=== PATIENT | male | born 1985 | race American Indian/Alaskan Native ===

== ENCOUNTER 2016-08-11 19:50 | Inpatient (IN) | payer OTHER ==
[2016-08-11 21:30] LABS: RBC URINE 1 /hpf (0-3); URINE BACTERIA RARE (<OCC); URINE BILIRUBIN NEGATIVE (NEGATIVE); URINE COLOR Yellow (YELLOW); URINE GLUCOSE (UA) NORMAL (Normal); URINE KETONE 2+ mg/dL (NEGATIVE); URINE LEUKOCYTE ESTERASE NEG Leu/uL (Negative); URINE PROTEIN 1+ mg/dL (NEGATIVE); URINE UROBILINOGEN NORMAL mg/dL (0.2-1.0); WBC URINE 1 /hpf (0-5)
[2016-08-11 21:33] LABS: BASO # 0.1 K/uL (0.0-0.2); BASO % 0.6 % (0.0-2.0); EOS % 0.1 % (0.0-4.0); HEMATOCRIT 41.3 % (35.0-51.0); LYMPH # 2.2 K/uL (1.0-4.3); MEAN CELL VOLUME 89.2 fL (80.0-94.0); MEAN CORPUSCULAR HEMOGLOBIN 29.5 pg (27.0-31.0); MEAN PLATELET VOLUME 9.4 fL (7.2-11.7); MONO # 0.6 K/uL (0.0-0.8); MONO % 4.8 % (0.0-10.0); NRBC % 0.1 % (0.0-2.0); RED CELL DISTRIBUTION WIDTH 13.4 % (11.5-14.5); WHITE BLOOD COUNT 13.5 K/uL (4.8-10.8)
[2016-08-11 21:36] LABS: CHLORIDE 100 mmol/L (98-107)
[2016-08-11 21:37] LABS: POTASSIUM 4.4 mmol/L (3.6-5.2); SODIUM 142 mmol/L (132-148)
[2016-08-11 21:39] LABS: ALB/GLOB RATIO 1.3 (1.0-2.1); ALKALINE PHOSPHATASE 87 U/L (38-126); ALT/SGPT 39 U/L (21-72); AST/SGOT 46 U/L (17-59); BILIRUBIN,TOTAL 0.5 mg/dL (0.2-1.3); BLOOD UREA NITROGEN 9 mg/dL (9-20); CALCIUM 8.9 mg/dl (8.6-10.4); CARBON DIOXIDE 16 mmol/L (22-30); GFR AFRICAN-AMERICAN > 60; GLUCOSE,RANDOM 67 mg/dL (75-110); TOTAL PROTEIN 8.4 g/dL (6.3-8.3)
[2016-08-11 21:40] LABS: ALCOHOL SERUM 267 mg/dl (0-10)
[2016-08-11 21:47] LABS: URINE BLOOD 1+ (NEGATIVE)
--- NOTE | 2016-08-11 21:49 | C.PDOC ---
History Of Present Illness The patient, a 30 y/o male whose past medical history includes alcohol and PCP abuse, presents to the emergency department for alcohol and PCP detox. Patient states his last use was earlier today. Patient states, "I will overdose myself if I can't have detox." He has no other medical complaints at this time. Time Seen by Provider: 08/11/16 20:59 Chief Complaint (Nursing): Substance Abuse History Per: Patient History/Exam Limitations: intoxication Onset/Duration Of Symptoms: Hrs Current Symptoms Are (Timing): Still Present Suicide/Self Injury Attempted (Context): None Modifying Factor(s): Alcohol, Other (+PCP ) Additional History Per: Patient Past Medical History Reviewed: Historical Data, Nursing Documentation, Vital Signs Vital Signs: Last Vital Signs Temp 98.1 F 08/11/16 23:05 Pulse 74 08/11/16 23:05 Resp 18 08/11/16 23:05 BP 145/87 08/11/16 23:05 Pulse Ox 96 08/12/16 01:27 - Medical History PMH: No Chronic Diseases Surgical History: No Surg Hx Family History: States: Unknown Family Hx - Social History Hx Alcohol Use: Yes Hx Substance Use: Yes - Immunization History Hx Tetanus Toxoid Vaccination: Yes Hx Influenza Vaccination: Yes Hx Pneumococcal Vaccination: No Review Of Systems Except As Marked, All Systems Reviewed And Found Negative. Psych: Positive for: Other (+requesting alcohol and PCP detox. ) Physical Exam - Physical Exam Appears: No Acute Distress Skin: Normal Color, Warm, Dry Head: Atraumatic, Normacephalic Eye(s): bilateral: Normal Inspection Oral Mucosa: Moist Neck: Supple Chest: Symmetrical, No Deformity, No Tenderness Cardiovascular: Rhythm Regular, No Murmur Respiratory: Normal Breath Sounds, No Rales, No Rhonchi, No Wheezing Back: Normal Inspection, No Vertebral Tenderness, No Paraspinal Tenderness Extremity: Normal ROM, Capillary Refill (less than 2 seconds) Neurological/Psych: Oriented x3, Normal Speech Gait: Steady ED Course And Treatment - Laboratory Results Result Diagrams: 08/11/16 21:18 08/11/16 21:18 O2 Sat by Pulse Oximetry: 96 (on RA) Pulse Ox Interpretation: Normal Medical Decision Making Medical Decision Making: Impression: 30 y/o male requesting alcohol and PCP detox Plan: * labs * CXR * reassess and disposition Progress Notes: labs and CXR ordered and reviewed. cxr neg as read by me 130: accepted to crisis. non specific leukocytosis. Disposition - Disposition Disposition: HOSPITALIZED Disposition Time: 01:27 Condition: STABLE - Clinical Impression Clinical Impression: Major depressive disorder, single episode, unspecified - Scribe Statement The provider has reviewed the documentation as recorded by the Scribe (Carolyn Driscoll) Provider Attestation: All medical record entries made by the Scribe were at my direction and personally dictated by me. I have reviewed the chart and agree that the record accurately reflects my personal performance of the history, physical exam, medical decision making, and the department course for this patient. I have also personally directed, reviewed, and agree with the discharge instructions and disposition. Decision To Admit - Pt Status Changed To: Hospital Disposition Of: Inpatient - Admit Certification Admit to Inpatient:: After my assessment, the patient will require hospitalization for at least two midnights. This is because of the severity of symptoms shown, intensity of services needed, and/or the medical risk in this patient being treated as an outpatient. - InPatient: Physician Admission Certification: I certify that this patient requires 2 or more midnights of care for the following reason:: pt with si, needs inpt pysch - . Bed Request Type: Psychiatry Admitting Physician: Estela Zhao Patient Diagnosis: Major depressive disorder, single episode, unspecified, Leukocytosis
[2016-08-12 03:06] VITALS: O2SAT 97
--- NOTE | 2016-08-12 10:26 | RAD ---
HISTORY: pysch COMPARISON: No prior. FINDINGS: LUNGS: No active pulmonary disease. PLEURA: No significant pleural effusion identified, no pneumothorax apparent. CARDIOVASCULAR: Normal. OSSEOUS STRUCTURES: No significant abnormalities. VISUALIZED UPPER ABDOMEN: Normal. OTHER FINDINGS: None. IMPRESSION: No active disease.
--- NOTE | 2016-08-12 12:00 | PCM.PSYCH ---
Initial Psychiatric Evaluation - Initial Psychiatric Evaluation Type of Admission: Voluntary Legal Status: Capacity Chief Complaint (in patient's own words): "I needed to get help" History of Present Illness and Precipitating Events: Pt seen, chart reviewed, case discussed with team. 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 The pt was brought to the hospital by family members for treatment of his PCP use and EtOH use after he was found at home in a lethargic state. The pt reports that he started smoking PCP at 15 and started EtOH use at 15. He uses 1.5g of PCP daily and drinks up to 1L of vodka daily, he usually begins consumption of these substances as soon as is off of work. With regards to the the pt's EtOH use, he reports that he has never experienced seizures, hallucination, formication upon cessation of drinking, but does experience irritability, anxiety, and mild tremors. The pt currently has intense cravings to drink. The pt gets mild anxiety when he stops his pcp use but believes his drinking problem is worse currently. The pt complaining of suicidal ideation last night in the ED when he arrived to the hospital, but has since stated his mood has improved but he still has thoughts of hurting himself. He has never attempted suicide in the past nor had these thoughts prior to this admission. The pt currently denies homicidal ideation, delusions, hallucinations, insomnia , changes in appetite. Psych: denies PMH:denies PSH: wrist fracture ORIF. Hospitalizations: Meds: none Allergies: PCN - hives and rash FamHx: no significant family history Social: 1ppd smoker, 1L of vodka daily, 1.5g of PCP daily, 1.5g of THC use daily. Current Medications: Active Medications Generic Name Dose Route Start Last Admin Trade Name Freq PRN Reason Stop Dose Admin Chlordiazepoxide 25 mg 08/12/16 10:55 Librium PO Q4H PRN Alcohol Withdrawal Chlordiazepoxide 25 mg 08/12/16 12:00 Librium PO 08/16/16 11:59 Q6 JUSTINA Taper Clonidine HCl 0.1 mg 08/12/16 10:55 Catapres PO Q4H PRN Symptoms of alcohol withdrawl Folic Acid 1 mg 08/12/16 11:00 Folic Acid PO DAILY JUSTINA Hydroxyzine HCl 50 mg 08/12/16 02:46 08/12/16 04:10 Atarax PO 50 mg Q6 PRN Administration Anxiety Influenza Virus Vaccine 45 mcg 08/13/16 13:30 Afluria IM 08/13/16 13:31 .ONCE ONE Multivitamins 1 tab 08/12/16 11:00 Hexavitamin PO DAILY [facility] Thiamine HCl 100 mg 08/12/16 11:00 Vitamin B1 Tab PO DAILY [facility] Trazodone HCl 50 mg 08/12/16 02:46 Desyrel PO HS PRN Sleep Past Psychiatric History - Past Psychiatric History Previous Treatment History: None Pertinent Medical Hx (Current Medical&Sleep Prob, Allergies): Allergies Allergy/AdvReac Type Severity Reaction Status Date / Time Penicillins Allergy Verified 08/11/16 20:55 No Known Home Med 08/11/16 Review of Systems - Review of Systems All systems: reviewed and no additional remarkable complaints except - Neurological Neurological: absent: Abnormal Hearing, Abnormal Movements, Confusion, Convulsions, Headaches, Tingling, Tremor - Psychiatric Psychiatric: Depression, Irritability. absent: Anxiety, Auditory Hallucinations , Hallucinations, Hopelessness, Suicidal Ideation, Visual Hallucinations, Tactile Hallucinations Mental Status Examination - Personal Presentation Personal Presentation: Looks stated age - Affect Affect: Depressed - Motor Activity Motor Activity: Calm - Reliability in Providing Information Reliability in Providing Information: Good - Speech Speech: Organized - Mood Mood: Depressed - Formal Thought Process Formal Thought Process: No Impairment - Obsessions/Compulsions Obsessions: No Compulsions: No - Cognitive Functions Orientation: Person, Place, Situation, Time Sensorium: Alert Attention/Concentration: Attentive Abstract Thinking: [place] Estimate of Intelligence: Average Judgement: Intact, as evidence by: Insight regarding need for hospitalization Memory: Recent intact, as evidence by: Ability to recall events of the day, Remote intact, as evidenced by: Ability to recall historical events - Risk Risk: Withdrawal - Strength & Assets Inventory Strength & Assets Inventory: Family support, Employment history - Limitations Limitations: Living alone DSM 5 DX - DSM 5 DSM 5 Diagnosis: Major depressive disorder recurrent moderate EtOH use d/o - severe EtOH withdrawal PCP use d/o - severe - Recommended/Plan of Treatment Treatment Recommendations and Plan of Treatment: Major depressive disorder recurrent moderate -CBT -group and supportive therapy -Zoloft 50 mg daily -Trazodone 50 mg by mouth daily at bedtime EtOH use d/o - severe -CBT -group and supportive therapy -ID for abstinence EtOH withdrawal - severe -Start Librium taper -Prn meds as needed -monitor for worsening signs of withdrawal PCP use d/o -CBT -ID for abstinence -group and supportive therapy -prn meds as needed Projected ELOS: 7 Prognosis: good with treatment Discharge Plan and Discharge Criteria: discharge when absence of withdrawal symptoms, mood stabilizes - Smoking Cessation Smoking Cessation Initiated: No
[2016-08-12 13:23] VITALS: RESP 18
[2016-08-12] MEDS: Multiple Vitamins Tab PO SCH (14:46)
[2016-08-13] MEDS: Multiple Vitamins Tab PO SCH (09:47)
[2016-08-13 10:58] VITALS: BP 107/63; PULSE 92; TEMP 98.1
--- NOTE | 2016-08-13 11:07 | PCM.PYCHDC ---
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 The pt was brought to the hospital by family members for treatment of his PCP use and EtOH use after he was found at home in a lethargic state. The pt reports that he started smoking PCP at 15 and started EtOH use at 15. He uses 1.5g of PCP daily and drinks up to 1L of vodka daily, he usually begins consumption of these substances as soon as is off of work. With regards to the the pt's EtOH use, he reports that he has never experienced seizures, hallucination, formication upon cessation of drinking, but does experience irritability, anxiety, and mild tremors. The pt currently has intense cravings to drink. The pt gets mild anxiety when he stops his pcp use but believes his drinking problem is worse currently. The pt complaining of suicidal ideation last night in the ED when he arrived to the hospital, but has since stated his mood has improved but he still has thoughts of hurting himself. He has never attempted suicide in the past nor had these thoughts prior to this admission. The pt currently denies homicidal ideation, delusions, hallucinations, insomnia , changes in appetite. Consultations:: List each consultation separately and include: 1. Reason for request. 2. Findings. 3. Follow-up Summary of Hospital Course include:: 1. Description of specific treatment plan utilized for patients during their course of treatmen. 2. Summarize the time- course for resolution of acute symptoms and/or regressed behaviors. 3. Describe issues identified and worked on during hospitalization. 4. Describe medication utilized. 5. Describe medical problems identified and treated. 6. Reassessment of suicide risk Summary of Hospital Course: During the course of his stay, patient (pt) started progressively improving and he no longer remained irritable, depressed, and suicidal. Patient signed a 48 hours notice yesterday. Today in the morning he said he wants to go to the welfare office. And he wants to leave. As per the patient he was withdrawing yesterday from drinking, that is why he mentioned that he suicidal. He reports improvement in his mood and denied any feelings of hopelessness, helplessness, and worthlessness, denied any problem with the sleep or appetite, denied suicidal ideation or homicidal ideation. Pt denied any auditory or visual hallucinations. Some changes were made in his current medications, however patient mentioned that he does not want any medications and patient refused to take any prescriptions. - Final Diagnosis (DSM 5) Condition upon Discharge: STABLE DSM 5: Major depressive disorder recurrent moderate EtOH use d/o - severe EtOH withdrawal - uncomplicated PCP use d/o severe Disposition: HOME/ ROUTINE Follow-up Treatment Plan: Education: Pt was educated and counseled about the risks and benefits of taking and not taking medications. Pt was educated and counseled about the risks of drinking and abusing drugs. Pt was educated and counseled to go to the ER or call 911 if pt develop suicidal ideation or homicidal ideation, worsening of symptoms or severe side effects of the meds. Prescriptions/Medication Reconciliation: traZODone [Desyrel] 50 mg PO HS PRN 14 Days PRN Reason: Sleep - Smoking Cessation Smoking Cessation Medication prescribed: No - Antipsychotic Medications Pt discharged on 2 or more routine antipsychotic medications: No
[2016-08-13] MEDS ORDERED: Influenza Virus Vaccine 45 mcg/0.5 ml Syr IM ONE (13:30)
== END 2016-08-13 12:35 | disposition home or self-care (01) | DRG 430 ==
LOC: C.ER 19:50 → C.5E 08-12 01:26
PROVIDERS: ADMIT Psychiatry & Neurology Psychiatry; ATTEND Psychiatry & Neurology Psychiatry
PROC: GZ3ZZZZ Medication Management (ICD-10-PCS; principal; 2016-08-12)
PROC: GZHZZZZ Group Psychotherapy (ICD-10-PCS; 2016-08-12)
PROC: GZ56ZZZ Individual Psychotherapy, Supportive (ICD-10-PCS; 2016-08-12)
PROC: HZ89ZZZ Medication Management for Substance Abuse Treatment, Other Replacement Medication (ICD-10-PCS; 2016-08-12)
PROC: HZ46ZZZ Group Counseling for Substance Abuse Treatment, Psychoeducation (ICD-10-PCS; 2016-08-12)
PROC: HZ59ZZZ Individual Psychotherapy for Substance Abuse Treatment, Supportive (ICD-10-PCS; 2016-08-12)
DX: F33.1 Major depressive disorder, recurrent, moderate (principal); F16.20 Hallucinogen dependence, uncomplicated; F10.239 Alcohol dependence with withdrawal, unspecified; D72.829 Elevated white blood cell count, unspecified; F17.210 Nicotine dependence, cigarettes, uncomplicated; F12.10 Cannabis abuse, uncomplicated